=== PATIENT | female | born 1980 | race Caucasian/White ===

== ENCOUNTER 2018-03-07 18:05 | Emergency (ER) | payer BC ==
--- NOTE | 2018-03-07 19:38 | EDM.PDOC ---
ED HPI GENERAL MEDICAL PROBLEM - General Chief Complaint: Lower Extremity Injury/Pain Stated Complaint: Left foot Pain Time Seen by Provider: 03/07/18 18:17 Source of Information: Reports: Patient History Limitations: Reports: No Limitations - History of Present Illness INITIAL COMMENTS - FREE TEXT/NARRATIVE: Patient comes to ER for evaluation of left ankle/foot pain that started after she slipped on some rocks and rolled ankle. Complains of immediate pain and crunching noise. Unable to bear full weight on foot. Denies other injuries. No other complaints. No numbness/tingling in affected foot. Left Foot Pain Score (Numeric/FACES): 9 - Related Data Allergies Allergy/AdvReac Type Severity Reaction Status Date / Time No Known Allergies Allergy Verified 03/07/18 18:54 Home Meds: Home Meds . [Unable to Verify Home Med List] 03/07/18 [History] Past Medical History - History Comment History Comment: Patient denies significant past health history. Did break several bones in right foot approximately one year ago. Review of Systems - Review of Systems Review Of Systems: ROS reveals no pertinent complaints other than HPI. Musculoskeletal: Reports: Foot Pain Skin: Reports: Bruising. Denies: Erythema, Wound Neurological: Denies: Numbness, Paresthesia ED EXAM, GENERAL - Physical Exam Exam: See Below Exam Limited By: No Limitations General Appearance: Alert, WD/WN, No Apparent Distress Eye Exam: Bilateral Eye: EOMI, PERRL Head: Atraumatic, Normocephalic Neck: Supple Respiratory/Chest: No Respiratory Distress Peripheral Pulses: 2+: Dorsalis Pedis (L) Extremities: Normal Capillary Refill, Other (patient able to wiggle toes of affected left foot. Has early bruising noted on lateral forefoot anterior to malleolus. Tender in this area. Foot/toes otherwise nontender. NVI. Nontender with palpation of lower left leg. ) Psychiatric: Normal Affect, Normal Mood Skin Exam: Warm, Dry, Intact, Ecchymosis Course - Vital Signs Last Recorded V/S: Last Vital Signs Temp 36.4 C 03/07/18 19:00 Pulse 60 03/07/18 19:00 Resp 20 03/07/18 19:00 BP 125/72 03/07/18 19:00 Pulse Ox 100 03/07/18 19:00 - Orders/Labs/Meds Orders: Active Orders 24 hr Category Date Time Status Foot Comp Min 3V Lt [CR] Stat Exams 03/07/18 18:06 Taken - Radiology Interpretation Free Text/Narrative:: No obvious fracture noted on xray. Pending Radiology review. - Re-Assessments/Exams Free Text/Narrative Re-Assessment/Exam: Foot/ankle maría elena wrapped by nursing staff. Crutches given to patient. Not to weight bear for next 48 hours. Then to advance activity as tolerated. To follow up for re-evaluation if no significant improvement noted within 72 hours. Tramadol given to patient from ER stock. Precautions reviewed. Departure - Departure Time of Disposition: 19:36 Disposition: Home, Self-Care 01 Condition: Good Clinical Impression: Left ankle injury Qualifiers: Encounter type: initial encounter Qualified Code(s): S99.912A - Unspecified injury of left ankle, initial encounter - Discharge Information Instructions: Crutch Use, Adult, [id number], Ankle Sprain, [id number], Tramadol tablets Referrals: PCP,Unknown [Primary Care Provider] - Forms: ED Department Discharge Additional Instructions: Tramadol one tab every 6 hours as needed for pain. OK to use [id number] Ibuprofen or Tylenol or Aleve also. Advance activity as tolerated. Avoid weight bearing on left ankle for rest of today and all of tomorrow. If you do not see reasonable improvement in pain by Friday/Friday, or continue to not be able to bear any weight on this foot by then, recommend follow up at local clinic or at walk-in Ortho clinic at either [facility] or [facility] for recheck. Ice/elevation as needed for comfort. - My Orders Last 24 Hours: My Active Orders 03/07/18 18:06 Foot Comp Min 3V Lt [CR] Stat - Assessment/Plan Last 24 Hours: My Active Orders 03/07/18 18:06 Foot Comp Min 3V Lt [CR] Stat
== END 2018-03-07 20:05 | disposition home or self-care (01) ==
LOC: LL.ED 18:05
DX: S90.32XA Contusion of left foot, initial encounter (principal); W01.0XXA Fall on same level from slipping, tripping and stumbling without subsequent striking against object, initial encounter
CPT/HCPCS: 73630-LT; 99283

== ENCOUNTER 2020-06-01 09:40 | Day surgery (SDC) | payer BC ==
[~2020-06-01 09:40] MED LIST: Midazolam 1 MG/ML 2 ML SDV ONE; Propofol 200 MG/20 ML SDV ONE; Sodium Chloride 0.9% 10 ML Syringe FLUSH PRN
[2020-06-01] MEDS: Lactated Ringers 1,000 ML IV SCH (10:37)
[2020-06-01] MEDS ORDERED: Propofol 200 MG/20 ML SDV ONE (11:10)
[2020-06-01] MEDS ORDERED: Midazolam 1 MG/ML 2 ML SDV ONE (11:10)
--- NOTE | 2020-06-01 11:45 | PCM.HPR ---
H & P Addendum review - H & P Addendum Review Date of Original H & P: 05/12/20 Date Reviewed: 06/01/20 Time Reviewed: 11:05 Patient was Examined: No Changes
--- NOTE | 2020-06-01 11:46 | PCM.OPNOTE ---
- General Post-Op/Procedure Note Date of Surgery/Procedure: 06/01/20 Operative Procedure(s): Colonoscopy Findings: Asc Polyp Pre Op Diagnosis: Hx Polyps Post-Op Diagnosis: Same Anesthesia Technique: MAC Primary Surgeon: Rene Powell Anesthesia Provider: Krista Pantoja Complications: None Condition: Good
[2020-06-01 14:09] VITALS: BP 119/64; PULSE 58
--- NOTE | 2020-06-02 14:32 | OR ---
Date of Procedure: 06/01/2020 PREOPERATIVE DIAGNOSIS: History of colon polyps. POSTOPERATIVE DIAGNOSIS: Ascending colon polyp. PROCEDURE: Colonoscopy with polypectomy. ANESTHESIA: IV sedation. PROCEDURE IN DETAIL: Patient was brought to the procedure room where she was placed on the left side and IV sedation administered. Digital rectal exam was performed. Which was normal. Colonoscope was inserted and advanced to the level of the cecum without difficulty. Cecal position was confirmed by identifying the appendiceal lumen and the ileocecal valve. Prep was good and surfaces were well visualized. Upon withdrawing the scope, there is an 8-mm sessile polyp located in the proximal ascending colon just distal to the ileocecal valve that was removed with a cautery snare and retrieved in the polyp trap. The remaining ascending, transverse, and descending colon were normal. Rectum was normal and retroflexion was normal. Air was removed and the scope withdrawn. Patient tolerated the procedure well and returned to recovery in stable condition. Patient will be contacted with the pathology report when it returns. Since there was only one polyp identified, she can wait 5 years until her next colonoscopy. RICA ALONZO MD /[id number]
== END 2020-06-01 13:08 | disposition home or self-care (01) ==
LOC: LL.SDS 09:40
PROVIDERS: ATTEND Surgery
DX: Z12.11 Encounter for screening for malignant neoplasm of colon (principal); D12.2 Benign neoplasm of ascending colon; F17.210 Nicotine dependence, cigarettes, uncomplicated; E78.5 Hyperlipidemia, unspecified; R73.9 Hyperglycemia, unspecified; F41.8 Other specified anxiety disorders; G40.909 Epilepsy, unspecified, not intractable, without status epilepticus; Z86.010 Personal history of colon polyps; Z79.899 Other long term (current) drug therapy
CPT/HCPCS: J2250; J2704; J7120